=== PATIENT | male | born 1985 | race Caucasian/White ===

== ENCOUNTER 2018-04-13 19:19 | Emergency (ER) | payer SELFPAY ==
[~2018-04-13] VITALS: Ht 182.9 cm; Wt 102.1 kg
[2018-04-13 19:39] VITALS: BP 112/67
--- NOTE | 2018-04-13 19:39 | PHYS DOC ---
Adult General Chief Complaint Chief Complaint: SEXUALLY TRANSMITTED DISEASE HPI HPI Patient is a 33 year old male who presents for STD treatment, patient states he had sex 3 days ago and now has tingling and dysuria. Review of Systems Review of Systems Constitutional: Denies fever or chills [] GI: Denies abdominal pain, nausea, vomiting, bloody stools or diarrhea [] : Reports dysuria and concern for STDs, denies hematuria [] Musculoskeletal: Denies back pain or joint pain [] Integument: Denies rash or skin lesions [] Neurologic: Denies headache, focal weakness or sensory changes [] All other systems were reviewed and found to be within normal limits, except as documented in this note. Current Medications Current Medications Current Medications Medications (Trade) Dose Ordered Sig/Narinder Start Time Stop Time Status Last Admin Dose Admin Azithromycin (Zithromax) 1,000 mg 1X ONCE 04/13/18 19:45 04/13/18 19:46 DC 04/13/18 19:49 1,000 MG Ceftriaxone Sodium (Rocephin Im) 250 mg 1X ONCE 04/13/18 19:45 04/13/18 19:46 DC 04/13/18 19:51 250 MG Metronidazole (Flagyl) 2,000 mg 1X ONCE 04/13/18 19:45 04/13/18 19:46 DC 04/13/18 19:49 2,000 MG Allergies Allergies Allergies Coded Allergies Type Severity Reaction Last Updated Verified No Known Drug Allergies 04/13/18 No Physical Exam Physical Exam Constitutional: Well developed, well nourished, no acute distress, non-toxic appearance. [] Skin: Warm, dry, no erythema, no rash. [] Back: No tenderness, no CVA tenderness. [] Extremities: No tenderness, no cyanosis, no clubbing, ROM intact, no edema. [] Neurologic: Alert and oriented X 3, normal motor function, normal sensory function, no focal deficits noted. [] Psychologic: Affect normal, judgement normal, mood normal. [] Current Patient Data Vital Signs Vital Signs Date Time Temp Pulse Resp B/P (MAP) Pulse Ox O2 Delivery O2 Flow Rate FiO2 04/13/18 19:39 98.2 60 16 112/67 (82) 98 Room Air 98.2 Lab Values Laboratory Tests Test 04/13/18 19:25 Urine Collection Type Unknown Urine Color Yellow Urine Clarity Clear Urine pH 7.5 Urine Specific [place] 1.025 Urine Protein Negative mg/dL (NEG-TRACE) Urine Glucose (UA) Negative mg/dL (NEG) Urine Ketones (Stick) Negative mg/dL (NEG) Urine Blood Negative (NEG) Urine Nitrite Negative (NEG) Urine Bilirubin Negative (NEG) Urine Urobilinogen Dipstick 0.2 mg/dL (0.2 mg/dL) Urine Leukocyte Esterase Large (NEG) Urine RBC 0 /HPF (0-2) Urine WBC >40 /HPF (0-4) Urine Bacteria 0 /HPF (0-FEW) Urine Chlamydia DNA (PCR) Negative (Negative) Neisseria gonorrhoeae DNA (PCR) Positive (Negative) A EKG EKG [] Radiology/Procedures Radiology/Procedures [] Course & Med Decision Making Course & Med Decision Making Pertinent Labs and Imaging studies reviewed. (See chart for details) This is a 33-year-old male patient presenting to the ED today with concern for STDs. Patient was given prophylaxis treatment. Education provided. Follow-up with the health department as needed. Staff Physician Addendum: I was working in the ER during the course of this patient's visit. I was available for consultation as needed, but I was not directly involved in the care of this patient. Dragon Disclaimer Dragon Disclaimer This electronic medical record was generated, in whole or in part, using a voice recognition dictation system. Departure Departure Impression: Primary Impression: Concern about STD in male without diagnosis Disposition: 01 HOME, SELF-CARE Condition: STABLE Patient Instructions: Sexually Transmitted Disease Additional Instructions: You were treated for sexually transmitted diseases. Use protection at all times. Do not have sex for 7 days. Contact all your sex partners, let them know you were treated for STDs and ask them to seek treatment too. Follow up with the health department for further STD concerns LATANYA ASH APRN Apr 13, 2018 19:39 DULCE KEY MD Apr 19, 2018 06:12
[2018-04-13 19:42] LABS: BILIRUBIN,URINE NEGATIVE (NEG); CLARITY,URINE CLEAR; COLOR,URINE YELLOW; NITRITE,URINE NEGATIVE (NEG); PH,URINE 7.5; PROTEIN,URINE NEGATIVE (NEG-TRACE); UROBILINOGEN,URINE 0.2 mg/dL (0.2 mg/dL)
[2018-04-13] MEDS ORDERED: cefTRIAXone IM 250 MG VIAL IM ONE (19:45)
[2018-04-13] MEDS ORDERED: AZITHROMYCIN 250 MG TABLET. PO ONE (19:45)
[2018-04-13] MEDS ORDERED: metroNIDAZOLE 500 MG TABLET PO ONE (19:45)
[2018-04-13 19:47] LABS: BACTERIA,URINE 0 /HPF (0-FEW); RBC,URINE 0 /HPF (0-2); WBC,URINE >40 /HPF (0-4)
== END 2018-04-13 20:01 | disposition home or self-care (01) ==
LOC: ER 19:19
DX: R30.0 Dysuria (principal); R20.2 Paresthesia of skin; Z20.2 Contact with and (suspected) exposure to infections with a predominantly sexual mode of transmission
CPT/HCPCS: 81001; 87491; 87591; 96372; 99284; J0696; Q0144; 99285-25

== ENCOUNTER 2018-05-01 22:19 | Emergency (ER) | payer SELFPAY ==
[~2018-05-01] VITALS: Ht 182.9 cm; Wt 102.1 kg
[2018-05-01 22:24] VITALS: BP 120/75
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
[2018-05-01] MEDS ORDERED: AZITHROMYCIN 250 MG TABLET. PO ONE (23:00)
[2018-05-01] MEDS ORDERED: cefTRIAXone IM 250 MG VIAL IM ONE (23:00)
== END 2018-05-01 23:03 | disposition home or self-care (01) ==
LOC: ER 22:19
DX: A63.8 Other specified predominantly sexually transmitted diseases (principal)
CPT/HCPCS: 87491; 87591; 96372; 99283; J0696; Q0144